=== PATIENT | female | born 1975 | race Caucasian/White ===

== ENCOUNTER → 2021-11-15 | Outpatient (CLI) | payer BC ==
--- NOTE | 2021-11-15 09:27 | Diagnostic Imaging Report ---
INDICATION: Left hand pain AP, oblique and lateral views of left hand are obtained. There is no evidence of an acute fracture or malalignment. There is joint space narrowing and mild marginal spurring at the 1st carpometacarpal joint with mild marginal spurring. No lytic or sclerotic lesion is identified. IMPRESSION: Moderate degenerative findings at the 1st carpometacarpal joint without acute abnormality seen in the left hand. Dictated by: Dictated on workstation # [id number]
== END ==
LOC: RAD FS 08:47
PROVIDERS: ATTEND Nurse Practitioner
DX: M18.12 Unilateral primary osteoarthritis of first carpometacarpal joint, left hand (principal)
CPT/HCPCS: 73130